=== PATIENT | male | born 1990 | race Caucasian/White ===

== ENCOUNTER 2023-11-21 22:05 | Emergency (ER) | payer OTHER ==
[~2023-11-21] VITALS: Ht 170.2 cm; Wt 136.0 kg
[2023-11-21 22:49] VITALS: O2SAT 100
[2023-11-21 23:32] LABS: BASOPHILS % 0.2 % (0.0-2.0); EOSINOPHILS % 1.3 % (0.0-5.0); HEMATOCRIT. 42.6 % (42.0-52.0); HEMOGLOBIN. 14.1 g/dL (14.0-18.0); LYMPHOCYTES % 14.6 % (20.0-50.0); MEAN CORPUSCULAR HEMOGLOBIN 27.7 pg (28.0-32.0); MEAN CORPUSCULAR HGB CONC 33.1 g/dL (31.0-37.0); MEAN CORPUSCULAR VOLUME 83.7 fL (80.0-94.0); MEAN PLATELET VOLUME 9.3 fl (7.4-10.4); MONOCYTES % 4.6 % (2.0-8.0); NEUTROPHILS % 79.3 % (40.0-76.0); PLATELET 229 x1000/uL (130-400); RED BLOOD CELL COUNT 5.09 mill/uL (4.7-6.1); RED CELL DISTRIBUTION WIDTH 15.1 % (11.6-14.6); WHITE BLOOD COUNT 12.5 x1000/uL (4.5-11.0)
[2023-11-21 23:35] LABS: CHLORIDE 106 mEq/L (98-107); POTASSIUM 3.6 mEq/L (3.5-5.1); SODIUM 142 mEq/L (136-145)
[2023-11-21 23:36] LABS: CARBON DIOXIDE 25 mEq/L (21-32)
[2023-11-21 23:37] LABS: CALCIUM 9.5 mg/dL (8.7-10.4); PROTHROMBIN TIME 10.9 sec (9.6-11.0)
[2023-11-21 23:41] LABS: CREATININE 1.3 mg/dL (0.6-1.3); GLUCOSE 142 mg/dL (70-105)
[2023-11-21 23:42] LABS: UREA NITROGEN BLOOD 12 mg/dL (9-23)
[2023-11-22 00:43] VITALS: TEMP 97.8
[2023-11-22] MEDS: SODIUM CHLORIDE 0.9% 1,000 ML IV ONE (00:51)
[2023-11-22] MEDS: KETOROLAC 30MG/ML VIAL IV ONE (00:51)
[2023-11-22] MEDS: HYDRALAZINE 20MG/ML VIAL IV ONE (01:42)
[2023-11-22] MEDS ORDERED: AMLO10TA80 MT (01:57)
[2023-11-22] MEDS ORDERED: TAMS-11 MT (01:57)
[2023-11-22] MEDS ORDERED: IBUP-2029 MT (01:57)
[2023-11-22 02:07] LABS: CLARITY URINE CLEAR (CLEAR); COLOR URINE YELLOW (YELLOW); GLUCOSE URINE NEGATIVE (NEGATIVE); KETONES URINE NEGATIVE (NEGATIVE); LEUKOCYTE ESTERASE URINE NEGATIVE (NEGATIVE); NITRITE URINE NEGATIVE (NEGATIVE); OCCULT BLOOD URINE 2+ (NEGATIVE); PH URINE 6.5 (4.5-8.0); PROTEIN URINE NEGATIVE (NEGATIVE); SPECIFIC GRAVITY URINE 1.015 (1.005-1.030); UROBILINOGEN URINE 0.2 E.U./dL (0.2-1.0)
[2023-11-22 04:50] VITALS: BP 150/75; PULSE 82; RESP 15
[2023-11-22 08:45] LABS: SQUAMOUS EPITHELIAL CELL URINE NONE SEEN /lpf (RARE/1+)
[2023-11-22 08:46] LABS: WBC URINE 0-2 /hpf (0-2)
[2023-11-22 08:47] LABS: BACTERIA URINE NONE SEEN; RBC URINE 25-50 /hpf (0-2)
== END 2023-11-22 05:00 | disposition home or self-care (01) ==
LOC: ER 22:05
DX: N20.0 Calculus of kidney (principal); I10 Essential (primary) hypertension
CPT/HCPCS: 99285; 80048; 83690; 85025; 85610; 36415; 96374; 76770; 96361; 96375; 81003; J0360; J1885; J7030